=== PATIENT | female | born 1955 | race Hispanic/Latino ===

== ENCOUNTER 2018-08-01 07:59 | Outpatient (CLI) | payer BC | END 2018-08-01 08:00 | disposition home or self-care (01) | LOC: RAD 07:59 ==

== ENCOUNTER 2018-08-19 07:23 | Outpatient (CLI) | payer BC | END 2018-08-19 07:24 | disposition home or self-care (01) | LOC: CARDIO 07:23 | DX: R06.02 Shortness of breath (principal); R94.31 Abnormal electrocardiogram [ECG] [EKG]; Z01.818 Encounter for other preprocedural examination ==